=== PATIENT | female | born 1960 | race Caucasian/White ===

== ENCOUNTER → 2017-06-04 | Outpatient (CLI) | payer MEDICARE, BC ==
[~2017-06-04] MED LIST: FLEXERIL10 MG PO; FUROSEMIDE 20MG20 MG PO; LEVOTHYROXIN0.175 MG PO; LORTAB 5/500 501 TAB PO; MOTRIN 600MG.600 MG PO; NATURE'S BLEND F1 MG PO; PLAQUENIL200 MG PO; PREDNISONE 20MG20 MG PO; PROPRANOLOL HCL40 MG PO; TYLENOL W/CODEI1 TAB PO
[2017-06-04 10:55] LABS: LYMPH # 1.2 K/mm3 (0.7-4.5); LYMPH % 25.2 % (10-50.0)
[2017-06-04 10:59] LABS: HEMOGLOBIN 14.5 g/dL (12.2-16.2)
[2017-06-04 12:57] LABS: BUN 10 mg/dL (7-18)
[2017-06-04 12:58] LABS: GFR (ESTIMATED) 103 ML/MIN (59-)
== END ==
LOC: LAB 10:43
PROVIDERS: Nurse Practitioner Family
DX: E55.9 Vitamin D deficiency, unspecified (principal); E03.9 Hypothyroidism, unspecified; M19.90 Unspecified osteoarthritis, unspecified site